=== PATIENT | male | born 1975 | race Caucasian/White ===

== ENCOUNTER 2017-04-15 11:32 | Emergency (ER) | payer SELFPAY | END 2017-04-15 15:33 | disposition home or self-care (01) | LOC: D.ER 11:32 | DX: S01.511A Laceration without foreign body of lip, initial encounter (principal); V89.2XXA Person injured in unspecified motor-vehicle accident, traffic, initial encounter; Y93.89 Activity, other specified; Y92.89 Other specified places as the place of occurrence of the external cause; S93.401A Sprain of unspecified ligament of right ankle, initial encounter; M25.511 Pain in right shoulder; M89.9 Disorder of bone, unspecified ==